=== PATIENT | male | born 1960 | race African-American/Black ===

== ENCOUNTER 2025-09-17 08:06 | Emergency (ER) | payer SELFPAY ==
[2025-09-17 08:23] VITALS: BP 158/76; PULSE 59; RESP 18; TEMP 36.3; O2SAT 98; BMI 30.2
--- NOTE | 2025-09-17 08:28 | ED_ITS ---
HPI - General Adult General Chief complaint: General Medical Stated complaint: med refill Time Seen by Provider: 09/17/25 08:27 Source: patient, RN notes reviewed and old records reviewed Mode of arrival: ambulatory History of Present Illness ED Provider: Robyn Rodriguez PA-C HPI narrative: 65-year-old male with a past medical history of hypertension presenting to the ED requesting medication refill of his doxazosin and amlodipine. Patient states he is currently [place] [employer] for a few months but is from [place] and ran out of his medications on Saturday (3 days ago). Denies any symptoms at present including headache, chest pain/shortness of breath. Related Data Previous Rx's ?Medication ?Instructions ?Recorded amlodipine 10 mg tablet 10 mg PO DAILY 30 days #30 t abs 09/17/25 doxazosin 2 mg tablet (Cardura) 2 mg PO BEDTIME 30 day s #30 tabs 09/17/25 Allergies Allergy/AdvReac Type Severity Reaction Status Date / Time No Known Allergies Allergy Verified 09/17/25 08:25 Review of Systems Review of Systems: Yes all other systems are reviewed and are negative Constitutional: Constitutional: Reports as per [facility] Past Medical History Attestation statement: The following information was validated with the patient. Source: old records reviewed Physical Exam ED Vital Signs: Vital Signs - 24 hr 09/17/25 08:23 Temperature 97.3 F Pulse Rate 59 Respiratory Rate 18 Blood Pressure 158/76 H Pulse Oximetry 98 Oxygen Delivery Method Room Air BMI result Body Mass Index 30.2 Const General: cooperative, healthy appearing and no acute distress Orientation/consciousness: patient oriented x3 Limitations: no limitations HENMT Head: Yes normal to inspection and Yes atraumatic Ears: hearing grossly normal bilaterally General nose exam: Normal external nose present Face and sinus: Yes normal facial exam Eyes General: appearance normal, both eyes and all related structures EOM: EOMs intact bilaterally Neck Neck: Yes normal visual inspection and Yes no meningeal signs Resp Effort & Inspection: normal respiratory effort and no respiratory distress Cardio Rate: regular rate Skin Rashes: no rashes Wounds: no wounds Neuro General: patient oriented x3, tone normal and no meningeal signs Cranial nerves: Yes CN's II-XII intact bilaterally Gait exam (Neuro): Normal gait present Extrem General: Yes normal to inspection Medical Decision Making Medical Decision Making MDM Narrative: 65-year-old male with a past medical history of hypertension presenting to the ED requesting medication refill of his doxazosin and amlodipine. On exam vital signs stable, NAD, nontoxic appearing. Patient asymptomatic. Patient requiring medication refill. Low suspicion for hypertensive urgency/emergency at this time Discussed with patient needed close follow up with PCP when he returns home. Please refer to course for remaining clinical decision making, interpretation of labs/imaging results, and discussions with consultants and/or family members. Results discussed with patient including worrisome signs and symptoms and strict return precautions, and when to return to the emergency department. They verbalized understanding and feel safe for discharge at this time. Differential Diagnosis Differential Diagnoses: The differential diagnosis associated with the presentation includes As above External Record Review External record reviewed: Office record, Prior outpatient radiology, Primary care record and Outside ED record Tests considered The following testing was considered but not selected: As above Chronic Conditions Patient?s care impacted by: Hypertension Social Determinants Patient?s care significantly limited by Social Determinants of Health including: Other Social Determinant of Health Discharge Plan Discharge Clinical Impression: Medication refill Patient Disposition: Home, Self-Care Instructions: Medicine Refill (ED) Additional Instructions: Continue taking home prescribed medications. A refill of your medications was sent to the pharmacy Please follow-up with your primary care doctor If you develop any headache, chest pain, shortness of breath, weakness return to the emergency department Prescriptions: New doxazosin [Cardura] 2 mg tablet 2 mg PO BEDTIME 30 Days Qty: 30 0RF amlodipine 10 mg tablet 10 mg PO DAILY 30 Days Qty: 30 0RF [place] [facility] [place] [facility] [place]Provider Group]
[2025-09-17 08:47] VITALS: BP 158/76; PULSE 59; RESP 18; TEMP 36.3; O2SAT 98
== END 2025-09-17 08:47 | disposition home or self-care (01) ==
LOC: HO.ED 08:42
PROVIDERS: Emergency Provider Emergency Medicine
DX: Z79.899 Other long term (current) drug therapy (principal); I10 Essential (primary) hypertension; Z76.0 Encounter for issue of repeat prescription
CPT/HCPCS: 99282

== ENCOUNTER 2025-10-24 07:35 | Emergency (ER) | payer SELFPAY ==
[2025-10-24 07:45] VITALS: BP 144/85; PULSE 67; RESP 16; TEMP 36.1; O2SAT 98; BMI 30.7
[2025-10-24 07:56] LABS: MANUAL DIFF FLAG NO
[2025-10-24 08:02] LABS: Hematocrit 40.2 % (42.0-52.0); Hemoglobin 14.1 g/dl (14.0-18.0); Imm Gran Abs Auto 0.01 X10*3/uL (0.00-0.03); Imm Gran Pct Auto 0.3 % (0.0-0.4); Lymphocytes Absolute Auto 1.3 X10*3/uL (1.2-4.9); Mean Corpuscular HGB Conc 35.1 g/dl (31.0-36.0); Mean Corpuscular Hemoglobin 31.0 pg (27.0-33.0); Mean Corpuscular Volume 88.4 fL (80.0-98.0); NRBC Abs Auto 0.000 X10*3/uL (0.0-0.012); NRBC Pct Auto 0.0 /100WBC (0.0-0.2); Platelet Count 170 X10*3/uL (160-400); Red Blood Count 4.55 X10*6/uL (4.60-5.80); White Blood Count 3.3 X10*3/uL (4.8-10.8)
[2025-10-24 08:21] LABS: Alanine Aminotransferase 21 U/L (0-40); Albumin Level 4.5 g/dL (3.5-5.0); Alkaline Phosphatase 51 U/L (39-117); Anion Gap 12 (12-20); Aspartate Amino Transferase 28 U/L (5-37); Blood Urea Nitrogen 15 mg/dL (9-16); Calcium 9.4 mg/dL (8.4-10.2); Carbon Dioxide 25 mmol/L (22-29); Chloride 106 mmol/L (96-108); Creatinine Clr Calc Pharmacy 76.4; Estimated Glomerular Filt Rate 59; Lipase 27 U/L (8-78); Potassium 3.8 mmol/L (3.3-5.1); Sodium 139 mmol/L (135-145); Total Protein 7.6 g/dL (6.5-8.0)
--- OUTSIDE RECORDS SUMMARY | 2025-10-24 08:56 | XMS_ITS ---
Author Organization Unknown ENCOUNTERS Encounter Performer Location Date Diagnosis Diagnosis Status Pre Admit [facility] ED Physician [address] [id number] *Note: Encounters from your own facility or health system may be excluded. Allergies, Adverse Reactions, Alerts Allergen Type Severity Identification Date Medications Name Date Quantity Days Supplied GPI Number
--- NOTE | 2025-10-24 09:18 | ED_ITS ---
HPI - General Adult General Chief complaint: Abdominal Pain Stated complaint: Eye Issues Irritation Time Seen by Provider: 10/24/25 08:59 Source: patient, RN notes reviewed and old records reviewed Mode of arrival: ambulatory Limitations: no limitations History of Present Illness ED Provider: Sandip CASEY narrative: Patient is a 65-year-old male presenting to the emergency department with complaint of epigastric pain for the past 2 weeks. States pain worsens with eating. Denies any nausea, vomiting, diarrhea. Denies fevers. Reports some mild constipation but states had a normal bowel movement yesterday. Denies chest pain, palpitations, dyspnea. MD complaint: epigastric pain Onset (ago): week(s) Related Data Previous Rx's ?Medication ?Instructions ?Recorded amlodipine 10 mg tablet 10 mg PO DAILY 30 days #30 t abs 09/17/25 doxazosin 2 mg tablet (Cardura) 2 mg PO BEDTIME 30 day s #30 tabs 09/17/25 famotidine 20 mg tablet 20 mg PO DAILY #14 tabs 09/27 Allergies Allergy/AdvReac Type Severity Reaction Status Date / Time No Known Allergies Allergy Verified 10/24/25 07:46 Review of Systems 2 Review of Systems: as per hpi Yes all other systems are reviewed and are negative PMFSH Social History Social History Advance Directives: No Advance Directives Information Provided: No Physical Exam ED Vital Signs: Vital Signs - 24 hr 10/24/25 07:45 10/24/25 12:19 Temperature 96.9 F 97.8 F Pulse Rate 67 62 Respiratory Rate 16 16 Blood Pressure 144/85 H 126/86 Pulse Oximetry 98 97 Oxygen Delivery Method Room Air Room Air BMI result Body Mass Index 30.7 Vital signs have been reviewed and appear to be correct. Blood pressure normal. Heart rate normal. Respiratory rate normal. Temperature normal. Oxygen saturation normal. Medications Administered Discontinued Medications Generic Name Dose Route Start Last Admin Trade Name Freq PRN Reason Stop Dose Admin Al Hydroxide/Mg Hydroxide 30 ml 10/24/25 09:52 10/24/25 10:17 Magnesium Hydrox/Alum Hydrox 30 Ml Oral.Susp PO 10/24/25 09:53 30 ml ONCE ONE Administration Lidocaine HCl 15 ml 10/24/25 09:52 10/24/25 10:17 Lidocaine Hcl Viscous 2 % 15 Ml Solution MUCOUS MEM 10/24/25 09:53 15 ml ONCE ONE Administration Medical Decision Making Medical Decision Making [facility] Narrative: Patient is a 65-year-old male presenting to the emergency department with complaint of epigastric pain for the past 2 weeks. On exam patient is awake, A+Ox3, VS WNL, afebrile, normal neurological exam without focal deficits, physical exam findings as above. Given reported symptoms and physical exam findings, initial differential includes but is not limited to gastritis, GERD, PUD. Unlikely ACS. Labs unremarkable, negative troponin. EKG shows sinus bradycardia. Symptoms improved with GI cocktail in the ED. Abdomen is nontender on physical exam. Will discharge patient home on famotidine and refer to GI. Return precautions discussed. Patient verbalized understanding of and agreement with plan. Differential Diagnosis Differential Diagnoses: The differential diagnosis associated with the presentation includes as per [facility] Admission/Observation Consideration of admission/observation: Escalation of care including admission/observation considered Patient would have been admitted to the hospital and transferred to appropriate facility had their clinical presentation warranted hospital admission. Lab Data [facility] Lab Attestation statement: I reviewed the patient's lab results. as per [facility] 10/24/25 07:51 10/24/25 07:51 Labs: Lab Results 10/24/25 Range/Units 07:51 WBC 3.3 L (4.8-10.8) X10*3/uL RBC 4.55 L (4.60-5.80) X10*6/uL Hgb 14.1 (14.0-18.0) g/dl Hct 40.2 L (42.0-52.0) % MCV 88.4 (80.0-98.0) fL MCH 31.0 (27.0-33.0) pg MCHC 35.1 (31.0-36.0) g/dl RDW 13.2 (11.0-16.0) % Plt Count 170 (160-400) X10*3/uL MPV 10.3 (9.4-12.4) fL Immature Gran % (Auto) 0.3 (0.0-0.4) % Neut % (Auto) 42.4 L (45-73) % Lymph % (Auto) 39.4 (20-40) % [place] % (Auto) 10.5 (2-11) % Eos % (Auto) 6.8 H (0-4) % Baso % (Auto) 0.6 (0-2) % Lymph # (Auto) 1.3 (1.2-4.9) X10*3/uL [place] # (Auto) 0.3 (0.1-1.2) X10*3/uL Eos # (Auto) 0.2 (0.0-0.4) X10*3/uL Baso # (Auto) 0.0 (0.0-0.2) X10*3/uL Abs Immat Gran (auto) 0.01 (0.00-0.03) X10*3/uL Absolute Neuts (auto) 1.4 L (2.0-8.3) x10*3/uL Absolute Nucleated RBC 0.000 (0.0-0.012) X10*3/uL Nucleated RBC % (auto) 0.0 (0.0-0.2) /100WBC Sodium 139 (135-145) mmol/L Potassium 3.8 (3.3-5.1) mmol/L Chloride 106 (96-108) mmol/L Carbon Dioxide 25 (22-29) mmol/L Anion Gap 12 (12-20) BUN 15 (9-16) mg/dL Creatinine 1.23 (0.5-1.4) mg/dL Estim Creat Clear Calc 76.4 Estimated GFR 59 Random Glucose 104 (60-115) mg/dL Calcium 9.4 (8.4-10.2) mg/dL Total Bilirubin 0.8 (0.0-1.0) mg/dL Direct Bilirubin 0.2 (0.0-0.5) mg/dL AST 28 (5-37) U/L ALT 21 (0-40) U/L Alkaline Phosphatase 51 (39-117) U/L Troponin I High Sens < 2.7 (<3.5-35.0) ng/L Total Protein 7.6 (6.5-8.0) g/dL Albumin 4.5 (3.5-5.0) g/dL Lipase 27 (8-78) U/L External Record Review External record reviewed: Inpatient record, Office record and Outpatient record Prescription Management I considered prescription management with: Other Discharge Plan Discharge Clinical Impression: Gastritis Patient Disposition: Home, Self-Care Instructions: Gastritis (DC), Diet for Stomach Ulcers and Gastritis (ED) Additional Instructions: You were evaluated in the emergency department today for epigastric pain. Your symptoms improved with medication in the ED. You are being prescribed famotidine which you should take daily. You can also use Mylanta, which is available over the counter, to help manage your symptoms. Avoid spicy or acidic foods. Please follow up with your primary care physician within two days. We are also referring you to the manager bilingual for further evaluation Of your symptoms and possible endoscopy.Return to the emergency department if you experience shortness of breath, worsening or uncontrolled abdominal pain, chest pain, light headedness, faiting, persistent nausea and vomiting, bloody vomit or stools, black, tarry stools, or any other concerning symptoms. Prescriptions: New famotidine 20 mg tablet 20 mg PO DAILY Qty: 14 0RF No Action doxazosin [Cardura] 2 mg tablet 2 mg PO BEDTIME 30 Days Qty: 30 0RF amlodipine 10 mg tablet 10 mg PO DAILY 30 Days Qty: 30 0RF Referrals: [facility] [place] [facility] [Provider Group, Gastroenterology] - 1 week Print Language: [place] Citizen
--- NOTE | 2025-10-24 09:52 | ECG_ITS ---
Test Reason : CP Blood Pressure : */* mmHG Vent. Rate : 51 BPM Atrial Rate : 51 BPM P-R Int : 196 ms QRS Dur : 90 ms QT Int : 404 ms P-R-T Axes : 50 -31 17 degrees QTcB Int : 372 ms Sinus bradycardia Left axis deviation Cannot rule out Anterior infarct , age undetermined Abnormal ECG No previous ECGs available Referred By: Zelda Oropeza Electronically Signed By: LOREN FIGUEROA
[2025-10-24] MEDS: Magnesium Hydrox/Alum Hydrox 30 ML ORAL.SUSP PO (10:17)
[2025-10-24] MEDS: Lidocaine HCl Viscous 2 % 15 ML SOLUTION MUCOUS MEM (10:17)
[2025-10-24 12:19] VITALS: BP 126/86; PULSE 62; RESP 16; TEMP 36.6; O2SAT 97
[2025-10-24 12:50] LABS: Troponin-I High Sensitivity < 2.7 ng/L (<3.5-35.0)
[2025-10-24 13:55] VITALS: BP 126/86; PULSE 62; RESP 16; TEMP 36.6; O2SAT 97
== END 2025-10-24 13:57 | disposition home or self-care (01) ==
PROVIDERS: Registered Nurse Emergency; Emergency Provider Emergency Medicine Emergency Medical Services
DX: K29.70 Gastritis, unspecified, without bleeding (principal); R10.13 Epigastric pain; R07.9 Chest pain, unspecified; R00.1 Bradycardia, unspecified; R94.31 Abnormal electrocardiogram [ECG] [EKG]
CPT/HCPCS: 36415; 80053; 82248; 83690; 84484; 85025; 93005; 99283; 99284

== ENCOUNTER → 2025-10-24 09:52 | Outpatient (BNV) | payer MEDICARE, SELFPAY | PROVIDERS: Emergency Provider Emergency Medicine Emergency Medical Services; Visit Provider Internal Medicine | DX: R00.1 Bradycardia, unspecified (principal) | CPT/HCPCS: 93010 ==